=== PATIENT | female | born 2000 ===

== ENCOUNTER 2019-04-16 08:40 | Outpatient (CLI) | payer OTHER ==
--- NOTE | 2019-04-16 10:26 | ULT ---
PELVIC ULTRASOUND WITH DOPPLER: HISTORY: Four years of nightly pelvic pain. COMPARISON: None. TECHNIQUE: Real-time, walsh-scale, color Doppler and spectral analysis of the pelvis was performed using a transa bdominal approach. FINDINGS: The uterus measures 6.6 x 4.5 x 3.3 cm. The endometrial thickness is 7 mm. The right ovary is enlarged, measuring 6.9 x 5.1 x 5.3 cm. The left ovary measures 1.7 x 1.3 x 1.2 cm . No significant free fluid in the pelvis. Adequate vascular flow to both ovaries. There is a cyst within the right ovary, measuring up to 4.2 cm in size, with peripheral, fine, reticu lar dependent markings, likely retracting clot. IMPRESSION: Findings of a hemorrhagic cyst of the right ovary, otherwise unremarkable examination. POS: [facility]
== END 2019-04-16 08:41 | disposition home or self-care (01) ==
LOC: BICULT 08:40
PROVIDERS: ATTEND Family Medicine
DX: R10.2 Pelvic and perineal pain (principal); N83.201 Unspecified ovarian cyst, right side
CPT/HCPCS: 76856; 93976